=== PATIENT | male | born 1985 | race Caucasian/White ===

== ENCOUNTER 2023-07-31 11:40 | Emergency (ER) | payer BC, SELFPAY ==
[2023-07-31 11:42] VITALS: BP 147/92
--- NOTE | 2023-07-31 12:13 | ED.GENMED ---
History of Present Illness
<Shelly Hansen PA-C - Last Filed: 07/31/23 18:47>
General
Chief Complaint: Allergic Reaction
Source: patient
Exam Limitations: none
Time Seen by Provider: 07/31/23 11:52
Nursing documentation reviewed up to this point in time: agreed with
Travel History
Have you had any contact with someone who has COVID-19?: No
Do you have any symptoms of coronavirus? Fever > 100 degrees, chills, cough, shortness of breath, sore throat, loss of taste or smell, muscle aches, or headache?: No
History of Present Illness
History of Present Illness:
37-year-old male with a history of a previous cardiac ablation age 21 for an unspecified dysrhythmia presents for diffuse redness and itching that started at around 11:10 AM. Patient says that just prior to that he had taken a dose of Augmentin
which she had leftover from previous prescription from April. Other than that he had only had an iced coffee today and no other medications or drugs. He says within a few minutes of taking the Augmentin he got itchy in his eyes, throat and
genital region followed by diffuse redness and some itchiness. He felt some chest tightness and shortness of breath, his heart started racing. He drove himself home and then his brought him to the ER. He is taken nothing prior to arrival.
Yesterday he started feeling a sore throat and and chills and thinks he may have had a fever.
he has not had any new foods or pills otherwise
never had a reaction like this
feels better now than he did
Past History
<Shelly Hansen PA-C - Last Filed: 07/31/23 18:47>
Past History
ED Past Medical History: Other (arrhythmia)
ED Past Surgical History: Cardiac (ablation)
Social History
Tobacco: Non-smoker
Alcohol: None
Drug: None
Personal:
Living: with family
Employment: Employed
Review of Systems
<Shelly Hansen PA-C - Last Filed: 07/31/23 18:47>
Review of Systems
Allergies reviewed?: Yes
All Other Systems: Not applicable
Phy Exam
<Shelly Hansen PA-C - Last Filed: 07/31/23 18:47>
Physical Exam
Physical Exam:
GENERAL: Alert , mildly anxious
EYE: pupils equal and reactive VERY FAINT injection conjunctiva
NECK: Supple
ENT: b/l TM s clear, minimal pharynx erythematous but no tonsillar hypertrophy or exudates
Mild uvular edema
no lesiosn in the pharynx
CARDIAC: Tachycardic no edema
LUNGS: Clear breath sounds bilaterally, no acute respiratory distress, no wheezes/rales/rhonchi, occ cough
ABDOMEN: Soft, without focal tenderness, no r/g, no cvat, normal bowel sounds
NEUROLOGICAL: Alert and oriented, no focal neuro deficits
SKIN: Warm and dry, skin intact.
Diffuse erythema, few urticarial lesions but mostly just diffuse redness, markedly erythematous, no target lesions
MUSCULOSKELETAL: No edema, well perfused.
PSYCH: Normal and appropriate interaction.
Course
<Shelly Hansen PA-C - Last Filed: 07/31/23 18:47>
Orders/Labs/Results
Orders:
Orders
07/31/23
Electrocardiogram (*1) Stat
Comment: DONE EMR
07/31/23 12:00
0.9% Sodium Chloride 1000 ml [Nss] 1,000 ml IV BOLUS
0.9% Sodium Chloride 1000 ml [Nss] 1,000 ml IV BOLUS
Dexamethasone Sod Phosphate [Decadron] 10 mg IV NOW STA
Diphenhydramine [Benadryl] 50 mg IV NOW STA
EPINEPHrine PF [Adrenalin] 0.3 mg IM NOW STA
Famotidine [Pepcid] 20 mg IV NOW STA
07/31/23 12:37
Complete Blood Count/With Diff Urgent
Comprehensive Metabolic Panel Urgent
Monotest Urgent
07/31/23 14:09
Rapid Strep Group A Urgent
RACHEL Source: Throat/Pharynx
Specimen Description:
Date Specimen was Collected: 07/31/23
Time Specimen was Collected: 13:48
Abnormal Lab Results
07/31/23
12:37
Absolute Lymphs (auto) 0.6 L 10^3/uL
(1.2-3.4)
Neutrophils % 79.7 H %
(42.2-75.2)
Lymphocytes % 12.0 L %
(20.5-51.1)
Sodium 133 L mmol/L
(135-145)
ALT 55 H U/L
(0-50)
07/31/23 12:37
07/31/23 12:37
Vital Signs
Initial and Last Documented VS:
Initial Vital Signs
Temp Pulse Resp BP Pulse Ox
98.1 F 144 18 147/92 95
07/31/23 11:42 07/31/23 11:42 07/31/23 11:42 07/31/23 11:42 07/31/23 11:42
Last Documented Vital Signs
Temp Pulse Resp BP Pulse Ox
98.1 F 102 23 122/73 95
07/31/23 11:42 07/31/23 14:45 07/31/23 14:45 07/31/23 15:28 07/31/23 11:42
<Simone Baker MD - Last Filed: 07/31/23 18:16>
Orders/Labs/Results
Orders:
Orders
07/31/23
Electrocardiogram (*1) Stat
Comment: DONE EMR
07/31/23 12:00
0.9% Sodium Chloride 1000 ml [Nss] 1,000 ml IV BOLUS
0.9% Sodium Chloride 1000 ml [Nss] 1,000 ml IV BOLUS
Dexamethasone Sod Phosphate [Decadron] 10 mg IV NOW STA
Diphenhydramine [Benadryl] 50 mg IV NOW STA
EPINEPHrine PF [Adrenalin] 0.3 mg IM NOW STA
Famotidine [Pepcid] 20 mg IV NOW STA
07/31/23 12:37
Complete Blood Count/With Diff Urgent
Comprehensive Metabolic Panel Urgent
Monotest Urgent
07/31/23 14:09
Rapid Strep Group A Urgent
RACHEL Source: Throat/Pharynx
Specimen Description:
Date Specimen was Collected: 07/31/23
Time Specimen was Collected: 13:48
Abnormal Lab Results
07/31/23
12:37
Absolute Lymphs (auto) 0.6 L 10^3/uL
(1.2-3.4)
Neutrophils % 79.7 H %
(42.2-75.2)
Lymphocytes % 12.0 L %
(20.5-51.1)
Sodium 133 L mmol/L
(135-145)
ALT 55 H U/L
(0-50)
07/31/23 12:37
07/31/23 12:37
Vital Signs
Initial and Last Documented VS:
Initial Vital Signs
Temp Pulse Resp BP Pulse Ox
98.1 F 144 18 147/92 95
07/31/23 11:42 07/31/23 11:42 07/31/23 11:42 07/31/23 11:42 07/31/23 11:42
Last Documented Vital Signs
Temp Pulse Resp BP Pulse Ox
98.1 F 102 23 122/73 95
07/31/23 11:42 07/31/23 14:45 07/31/23 14:45 07/31/23 15:28 07/31/23 11:42
<Shelly Hansen PA-C - Last Filed: 07/31/23 18:47>
MDM/Problems Addressed
Differential Diagnosis Includes:
allergic reaction, SJS, serum sickness, mono
MDM/Problems Addressed:
37 y/o M with recent uri sxs and spontaneous redness, itchy and uvular swellling today after taking one of his left over agumentin from a previuos infx
no reactions to pcn in the past
diffusely red, tachy, renetta mild uvular edema
no other signs of SJS/serum sickness unlikely
pt has been on nsaids erecently (naproxne) for knee pain
pt had near complete resolution with steroids, benadryl and epi
seen by ed attending
mono neg, strep neg
likely allergic
d/c home with epi pen, steroids, benadryl
<Shelly Hansen PA-C - Last Filed: 07/31/23 18:47>
*Critical Care Note
Total Time (30-74mins, 75-104mins- exclusive of procedures): Not Applicable
ED Attending Note
<Shelly Hansen PA-C - Last Filed: 07/31/23 18:47>
-
Portions of this chart may have been created with voice recognition software.� Occasional wrong word or��sound alike� substitutions may have occurred due to the inherent limitations of voice recognition software.
<Simone Baker MD - Last Filed: 07/31/23 18:16>
ED Attending Note
Patient seen and examined by attending physician: Yes
ED Attending Note:
I have seen and evaluated the patient with a [id number] encounter. I have spoken to the advance practicer provider and involved in the medical history, the physical exam, medical decision making.
Evaluation and management service: agree unless noted differently below.
Results interpretation: agree unless noted differently below.
Focused HPI: 37-year-old male with no clinically significant medical history presents for evaluation of apparent allergic reaction. Patient reports he started feeling fatigued and mild sore throat yesterday. He had some leftover amoxicillin from a
prior prescription and took it this morning. 15 minutes later he began to develop diffuse hives, pruritus, redness on his body. He felt some tightness in his throat and chest. Came to the emergency room for assessment. He says he did not have
any nausea, vomiting, abdominal cramping. He says he has never had allergic reaction in the past. He denies any known allergies. He says he has taken amoxicillin in the past has never had a response like this. No other known ingestion says that
all that he ate today was an iced coffee which he has had many times before.
Physical exam: Awake alert, anxious. Tachycardic. Hives and erythema over essentially entire body. No significant uvular edema, tongue swelling, lip swelling. No stridor. Handling secretions. No wheezing on lung auscultation.
Medical Decision Making: Patient presents after apparent allergic reaction after taking amoxicillin. Generalized pruritus, tightness in the throat and chest. Tachycardic and hypertensive on arrival exam as above. Protecting his airway. Given IM
epi, steroids, Benadryl and symptoms resolved. Will observe here in the emergency room. Sent basic labs and monotest which were unremarkable. If he remains asymptomatic with no rebound symptoms will discharge with short course of steroids, EpiPen
and PCP follow-up. Advised to avoid amoxicillin.
Discharge Plan
Departure
Patient Disposition: Home (Routine Discharge)
Date of Disposition: 07/31/23
Time of Disposition: 15:02
Patient with high blood pressure during this ER visit?: No
Condition: Fair
Covid-19: Not Applicable
Discharge Problem:
Allergic reaction
Instructions: Adverse Drug Reactions, Adult (DC)
Prescriptions:
New
prednisone 20 mg tablet
20 mg PO DAILY Qty: 8 0RF
epinephrine [EpiPen] 0.3 mg/0.3 mL auto-injector
0.3 mg IM .STAT PRN (Reason: anaphylaxis) Qty: 1 0RF
Referrals:
Chet Pham MD [Family Provider] - Follow up in 2-3 days
Activity Restrictions/Additional Instructions:
Not sure what you are allergic to but I suppose it could be the Augmentin that you took. Please avoid that for now. Take prednisone once a day for 4 days starting tomorrow. You can take Tylenol as needed for fever or sore throat. You tested
negative for strep and mono. Your blood work was reassuring. We gave you a prescription for an EpiPen which you are to use if your redness spontaneously occurs in addition to having any symptoms like voice change, trouble breathing, vomiting
THEN CALL 911 if you use the epi pen.
return for any concerns.
Use Benadryl 50 mg every 8 hours for the next day, then only as needed
Interventions
Interventions:
*Risk Screen - Suicide Last Done: 07/31/23 12:40
*General Assessment Last Done: 07/31/23 12:40
*Neglect/Abuse Screening Last Done: 07/31/23 12:40
ED- Fall Risk Assessment Last Done: 07/31/23 15:28
*ED COVID-19 Vaccine History Last Done: 07/31/23 12:40
*Nursing Disposition Last Done: 07/31/23 15:28
ED- Cardiac Assessment Last Done: 07/31/23 12:40
ED- Pulmonary Assessment Last Done: 07/31/23 12:40
ED-Skin Assessment Last Done: 07/31/23 12:40
Discharge Date and Time
Discharge Date/Time: 07/31/23 15:28
[2023-07-31] MEDS: NSS 1000 IV (12:40)
[2023-07-31] MEDS: ADRENALIN 0.299999999999999989 MG IM (12:41)
[2023-07-31] MEDS: DECADRON 10 MG IV (12:41)
[2023-07-31] MEDS: PEPCID 20 MG IV (12:41)
[2023-07-31] MEDS: BENADRYL 50 MG IV (12:41)
[2023-07-31 13:18] LABS: % Basophils 0.6 % (0-2); % Eosinophils 0.2 % (0-6); % Immature Granulocytes 0.2 % (0-0.5); % Monocytes 7.3 % (1.7-9.3); % Neutrophils 79.7 % (42.2-75.2); Absolute Lymphocytes 0.6 10^3/uL (1.2-3.4); Absolute Monocytes 0.4 10^3/uL (0.1-0.6); Absolute Neutrophils 4.2 10^3/uL (1.4-6.5); Hematocrit 47.5 % (39.0-52.0); Hemoglobin 16.7 g/dL (13.0-18.0); Mean Corp Hgb Conc. 35.2 g/dL (33.0-37.0); Mean Corpuscular Hgb 30.3 pg (27.0-31.0); Mean Corpuscular Volume 86.2 fL (80.0-94.0); Nucleated Red Blood Cells % 0 % (-); Platelet Count 214 10^3/uL (130-400); Red Blood Cell Count 5.51 10^6/uL (4.70-6.10); Red Cell Dist. Width 12.7 % (11.5-14.5); White Blood Cell Count 5.2 10^3/uL (4.8-10.8)
[2023-07-31 13:34] LABS: ALT (SGPT) 55 U/L (0-50); AST (SGOT) 28 U/L (17-59); Albumin 4.5 g/dl (3.5-5.0); Alkaline Phosphatase 63 U/L (38-126); Blood Urea Nitrogen 11 mg/dl (9-20); Calcium 9.2 mg/dl (8.4-10.2); Carbon Dioxide 23 mmol/L (22-30); Chloride 102 mmol/L (98-107); Glucose 92 mg/dl (70-99); Sodium 133 mmol/L (135-145); Total Protein 7.2 g/dl (6.3-8.2); eGFR > 60.00
[2023-07-31 14:08] LABS: Monotest Negative (Negative)
[2023-07-31 14:30] VITALS: BP 135/74
[2023-07-31 15:28] VITALS: BP 122/73
== END 2023-07-31 15:28 | disposition home or self-care (01) ==
LOC: EMR 11:40
PROVIDERS: Physician Assistant; EMERGENCY PHYSICIAN Emergency Medicine; FAMILY PHYSICIAN Family Medicine
DX: T78.40XA Allergy, unspecified, initial encounter (principal)
CPT/HCPCS: 99284; 96374; 96375 ×2; 96361; 96372; 80053; 85025; 86308; 87070; 87880; 93005